=== PATIENT | male | born 1990 | race Caucasian/White ===

== ENCOUNTER 2020-03-16 11:28 | Emergency (ER) | payer MEDICAID ==
[2020-03-16 11:52] VITALS: BP 144/96; PULSE 67
--- NOTE | 2020-03-16 12:20 | EDM.PDOC ---
ED HPI GENERAL MEDICAL PROBLEM - General Chief Complaint: Flank Pain Stated Complaint: uti??? Time Seen by Provider: 03/16/20 12:05 Source of Information: Reports: Patient History Limitations: Reports: No Limitations - History of Present Illness INITIAL COMMENTS - FREE TEXT/NARRATIVE: 29-year-old male who developed right flank pain and dysuria fairly suddenly this morning. No chills. Denies nausea or vomiting or abdominal pain. He had an episode of right flank pain that lasted four hours 3 days ago then resolved. He is fairly uncomfortable. Onset: Sudden Duration: Hour(s): (4 hours ago) Location: Reports: Other (Right flank) Quality: Reports: Burning, Sharp Worsens with: Reports: Other (Urinating causes increased pain and discomfort) Associated Symptoms: Reports: No Other Symptoms Right Flank Pain Score (Numeric/FACES): 8 - Related Data Allergies Allergy/AdvReac Type Severity Reaction Status Date / Time No Known Allergies Allergy Verified 03/12/18 16:36 Past Medical History - Past Health History Medical/Surgical History: Denies Medical/Surgical History Genitourinary History: Reports: UTI, Recurrent Psychiatric History: Reports: ADHD, Anxiety, Bipolar, Depression, PTSD Dermatologic History: Reports: Other (See Below) Other Dermatologic History: skin cysts. Hives - Infectious Disease History Infectious Disease History: Reports: Chicken Pox, MRSA Social & Family History - Tobacco Use Tobacco Use Status *Q: Current Every Day Tobacco User Years of Tobacco use: 13 Packs/Tins Daily: 0.5 - Caffeine Use Caffeine Use: Reports: Coffee, Soda, Tea - Recreational Drug Use Recreational Drug Use: Yes Drug Use in Last 12 Months: Yes Recreational Drug Type: Reports: Marijuana/Hashish Recreational Drug Use Frequency: Rarely ED ROS GENERAL - Review of Systems Review Of Systems: See Below Constitutional: Denies: Fever, Chills HEENT: Reports: No Symptoms Respiratory: Reports: No Symptoms GI/Abdominal: Reports: No Symptoms : Reports: Dysuria, Frequency, Urgency Musculoskeletal: Reports: Back Pain (Right flank) Skin: Reports: No Symptoms Neurological: Reports: No Symptoms ED EXAM, RENAL/ - Physical Exam Exam: See Below Exam Limited By: No Limitations General Appearance: Alert, No Apparent Distress (Looks uncomfortable but not distressed) Head: Atraumatic Respiratory/Chest: No Respiratory Distress, Lungs Clear Cardiovascular: Regular Rate, Rhythm GI/Abdominal: Soft, Non-Tender Back Exam: CVA Tenderness (R) (A small amount of right CVA tenderness to percussion) Course - Vital Signs Last Recorded V/S: Last Vital Signs Temp 96.3 F L 03/16/20 12:06 Pulse 67 03/16/20 12:06 Resp 16 03/16/20 12:06 BP 144/96 H 03/16/20 12:06 Pulse Ox 100 03/16/20 12:06 - Orders/Labs/Meds Labs: Laboratory Tests 03/16/20 Range/Units 12:16 Urine Color Yellow (YELLOW) Urine Appearance Slightly cloudy A (CLEAR) Urine pH 8.0 (5.0-8.0) Ur Specific [place] 1.020 (1.008-1.030) Urine Protein 100 H (NEGATIVE) mg/dL Urine Glucose (UA) Negative (NEGATIVE) mg/dL Urine Ketones Negative (NEGATIVE) mg/dL Urine Occult Blood Moderate H (NEGATIVE) Urine Nitrite Negative (NEGATIVE) Urine Bilirubin Negative (NEGATIVE) Urine Urobilinogen 0.2 (0.2-1.0) EU/dL Ur Leukocyte Esterase Negative (NEGATIVE) Urine RBC 20-30 H (0-5) Urine WBC Not seen (0-5) Ur Epithelial Cells Not seen Amorphous Sediment Moderate Urine Bacteria Moderate Urine Mucus Not seen Meds: Medications Discontinued Medications Generic Name Dose Route Start Last Admin Trade Name Freq PRN Reason Stop Dose Admin Ketorolac Tromethamine 30 mg 03/16/20 12:39 03/16/20 12:59 Toradol IVPUSH 03/16/20 12:40 30 mg ONETIME ONE Administration Tamsulosin HCl 0.4 mg 03/16/20 13:17 03/16/20 13:23 Flomax PO 03/16/20 13:18 0.4 mg ONETIME ONE Administration - Re-Assessments/Exams Free Text/Narrative Re-Assessment/Exam: 03/16/20 12:36 UA was obtained, if hematuria without infection CT will be considered. 03/16/20 12:43 UA shows 20-30 RBCs but no other significant findings. An IV was started, patient will given 30 mg of IV Toradol and a CT abdomen pelvis without contrast ordered 03/16/20 13:39 CT confirmed mild right hydronephrosis with a small stone right UVJ junction, possibly already in the bladder. Patient was feeling much better. He given oral dose of Flomax, and discharged with 10 doses of Toradol to take every 6-8 hours for pain and he can return anytime if worsening. She also consider rechecking next week if still having symptoms. Departure - Departure Time of Disposition: 13:49 Disposition: Home, Self-Care 01 Clinical Impression: Right nephrolithiasis, Renal colic on right side - Discharge Information Instructions: Kidney Stones, [id number] Referrals: PCP,None [Primary Care Provider] - Forms: ED Department Discharge Care Plan Goals: Continue taking 1 pain pill every 6 hours along with Tylenol or acetaminophen if needed until pain resolves. Return to the emergency room if pain is uncontrolled or you start vomiting or develop a fever. Otherwise consider rechecking next week if not completely back to normal. Sepsis Event Note (ED) - Evaluation Sepsis Screening Result: No Definite Risk - Focused Exam Vital Signs: Vital Signs Temp Pulse Resp BP Pulse Ox 03/16/20 12:06 96.3 F L 67 16 144/96 H 100 03/16/20 11:51 96.3 F L 67 16 144/96 H 100
[2020-03-16] MEDS ORDERED: Ketorolac 30 MG/ML SDV IVPUSH ONE (12:39)
[2020-03-16] MEDS ORDERED: Tamsulosin 0.4 MG Cap.ER PO ONE (13:17)
--- NOTE | 2020-03-16 13:34 | CT ---
Abdomen Pelvis wo Cont CLINICAL HISTORY: Hematuria and right flank pain COMPARISON: None. TECHNIQUE: Axial tomographic images are obtained from the dome of the diaphragm to the pubic symphysis without IV contrast enhancement. No oral contrast was used. The dosage reduction and iterative reconstruction techniques employed. FINDINGS: The lung bases are clear. The liver is normal size and density. The gallbladder has a normal contour. The spleen has a normal size and shape. The pancreas shows no mass or inflammatory change. The adrenal glands appear normal bilaterally. The right kidney is mildly hydronephrotic. There is mild dilatation of the right ureter along its length. There is a 6 mm stone in the bladder contiguous to the right UVJ. This still may be within the distal ureteral orifice. There is a punctate stone in the upper pole of the right kidney. Left kidney shows no stone or hydronephrosis IMPRESSION: Mild right-sided hydronephrosis and hydroureter with a small urinary stone in the bladder contiguous to the UVJ. This could still be within the orifice.
== END 2020-03-16 13:50 | disposition home or self-care (01) ==
LOC: JP.ED 11:28
DX: N13.2 Hydronephrosis with renal and ureteral calculous obstruction (principal); F17.210 Nicotine dependence, cigarettes, uncomplicated
CPT/HCPCS: 74176; 81001; 96374; 99284; A9270; J1885

== ENCOUNTER 2020-10-24 22:50 | Emergency (ER) | payer MEDICAID ==
[2020-10-25] MEDS ORDERED: Sodium Chloride 0.9% 2,000 ML IV ONE (01:01)
[2020-10-25] MEDS ORDERED: Famotidine 20 MG/2 ML SDV IVPUSH ONE (01:02)
[2020-10-25] MEDS ORDERED: Ondansetron 4 MG/2 ML SDV IVPUSH PRN (01:02)
[2020-10-25] MEDS ORDERED: Sodium Chloride 0.9% 10 ML Syringe FLUSH PRN (01:02)
--- NOTE | 2020-10-25 01:08 | EDM.PDOC ---
ED HPI GENERAL MEDICAL PROBLEM - General Chief Complaint: Back Pain or Injury Stated Complaint: KIDNEY PAIN AND SEVERE BACK PAIN Time Seen by Provider: 10/25/20 01:01 Source of Information: Reports: Patient History Limitations: Reports: No Limitations - History of Present Illness INITIAL COMMENTS - FREE TEXT/NARRATIVE: Patient states that he woke up last night nausea vomiting fever, times continued throughout today he is had difficulty keeping any food or fluids down as well as he reports decreased urination. He states that he has body aches all over that his right and left side laterally in the flank as well as back as well as muscle cramps in his legs arms shoulders patient also reports being dizzy and lightheaded with any movement especially upright positioning PMH--anxiety, depression Meds--seroquel, buspar NKDA Tob--2 cig/ day EtOH/Drug--denies Onset Date: 10/24/20 right sided lower back pain Pain Score (Numeric/FACES): 8 - Related Data Allergies Allergy/AdvReac Type Severity Reaction Status Date / Time No Known Allergies Allergy Verified 03/12/18 16:36 Past Medical History - Past Health History Medical/Surgical History: Denies Medical/Surgical History Genitourinary History: Reports: UTI, Recurrent Psychiatric History: Reports: ADHD, Anxiety, Bipolar, Depression, PTSD Dermatologic History: Reports: Other (See Below) Other Dermatologic History: skin cysts. Hives - Infectious Disease History Infectious Disease History: Reports: Chicken Pox, MRSA Social & Family History - Tobacco Use Tobacco Use Comment: Pt states, "I only smoke like 2 smokes a day and thats only if im stressed" - Caffeine Use Caffeine Use: Reports: None - Recreational Drug Use Recreational Drug Use: Yes Drug Use in Last 12 Months: Yes Recreational Drug Type: Reports: Methamphetamine ED ROS GENERAL - Review of Systems Review Of Systems: Comprehensive ROS is negative, except as noted in HPI. Constitutional: Reports: Fever, Fatigue, Other (Body aches) HEENT: Reports: No Symptoms Respiratory: Reports: No Symptoms Cardiovascular: Reports: Lightheadedness, Palpitations Endocrine: Reports: No Symptoms GI/Abdominal: Reports: Abdominal Pain, Decreased Appetite, Nausea, Vomiting. Denies: Difficulty Swallowing : Reports: Other (Decreased urination) Musculoskeletal: Reports: Other (He aches) Skin: Reports: No Symptoms Neurological: Reports: Dizziness Psychiatric: Reports: No Symptoms Hematologic/Lymphatic: Reports: No Symptoms Immunologic: Reports: No Symptoms ED EXAM, GENERAL - Physical Exam Exam: See Below Exam Limited By: No Limitations General Appearance: Alert, WD/WN, Moderate Distress (There is to not feel well) Eye Exam: Bilateral Eye: EOMI, Normal Inspection, PERRL Ears: Normal External Exam, Hearing Grossly Normal Nose: Normal Inspection Throat/Mouth: Normal Inspection, Normal Oropharynx, Normal Voice, No Airway Compromise Head: Atraumatic, Normocephalic Neck: Normal Inspection, Supple, Non-Tender, Full Range of Motion. No: Lymphadenopathy (R), Lymphadenopathy (L) Respiratory/Chest: No Respiratory Distress, Lungs Clear, Normal Breath Sounds Cardiovascular: Normal Peripheral Pulses, No Edema, Tachycardia Peripheral Pulses: 2+: Radial (L), Radial (R) GI/Abdominal: Normal Bowel Sounds, Soft, No Distention, Tender ([place]). No: Guarding, Rigid (Male) Exam: Deferred Rectal (Males) Exam: Deferred Back Exam: CVA Tenderness (R), CVA Tenderness (L) Extremities: Normal Inspection, Normal Range of Motion, No Pedal Edema, Normal Capillary Refill Neurological: Alert, Oriented, No Motor/Sensory Deficits Psychiatric: Normal Affect, Normal Mood Skin Exam: Warm, Dry, Intact, Normal Color Course - Vital Signs Text/Narrative:: Lab abnormalities noted as follows White blood cell13.5 [id number] neutrophils 80% bands 5% on chemistry panel [id number] anion gap 15.2 bun/creatinine 26/2.1 estimated GFR close 38 magnesium 1.2 ALT 80. UA returns noted for hyaline casts consistent with dehydration was methamphetamine in urine drug screen. in room to d/w patient lab findings and recommendations in further care to include admission/transfer to another facility (no beds available at this hospital). he initially indicated he was interested in going to [place] but then he said he would have his girlfriend take him tomorrow if he still felt bad. attempted several times to explain his medical situation with dehydration/acute renal failure but he made the final decision to sign out AMA Last Recorded V/S: Last Vital Signs Temp 98.2 F 10/25/20 02:03 Pulse 135 H 10/25/20 02:03 Resp 24 H 10/25/20 02:03 BP 109/37 L 10/25/20 02:03 Pulse Ox 100 10/25/20 02:03 - Orders/Labs/Meds Orders: Active Orders 24 hr Category Date Time Status DRUG SCREEN, URINE [URCHEM] Stat Lab 10/25/20 02:03 Ordered UA W/MICROSCOPIC [URIN] Stat Lab 10/25/20 02:03 Received Saline Lock Insert [OM.PC] Routine Oth 10/25/20 01:02 Ordered Labs: Laboratory Tests 10/25/20 10/25/20 Range/Units 01:06 01:06 WBC 13.5 H (4.5-11.0) K/uL RBC 5.01 (4.30-5.90) M/uL Hgb 15.0 (12.0-15.0) g/dL Hct 44.6 (40.0-54.0) % MCV 89 (80-98) fL MCH 30 (27-31) pg MCHC 34 (32-36) % Plt Count 98 L (150-400) K/uL Add Manual Diff Yes Neutrophils % (Manual) 80 H (36-66) % Band Neutrophils % 5 (5-11) % Lymphocytes % (Manual) 8 L (24-44) % Monocytes % (Manual) 6 (2-6) % Eosinophils % (Manual) 1 L (2-4) % Sodium 136 L (140-148) mmol/L Potassium 4.2 (3.6-5.2) mmol/L Chloride 97 L (100-108) mmol/L Carbon Dioxide 28 (21-32) mmol/L Anion Gap 15.2 H (5.0-14.0) mmol/L BUN 26 H (7-18) mg/dL Creatinine 2.1 H (0.8-1.3) mg/dL Est Cr Clr Drug Dosing 57.48 mL/min Estimated GFR (MDRD) 38 L (>60) Glucose 94 (74-106) mg/dL Calcium 8.8 (8.5-10.1) mg/dL Magnesium 1.2 L (1.8-2.4) mg/dL Total Bilirubin 1.0 (0.2-1.0) mg/dL AST 35 (15-37) U/L ALT 80 H (12-78) U/L Alkaline Phosphatase 91 (46-116) U/L Total Protein 7.2 (6.4-8.2) g/dL Albumin 4.0 (3.4-5.0) g/dL Globulin 3.2 (2.3-3.5) g/dL Albumin/Globulin Ratio 1.3 (1.2-2.2) Amylase 69 (25-115) U/L Lipase 78 (73-393) U/L Meds: Medications Discontinued Medications Generic Name Dose Route Start Last Admin Trade Name Freq PRN Reason Stop Dose Admin Famotidine 20 mg 10/25/20 01:02 10/25/20 01:22 Famotidine 20 Mg/2 Ml Sdv IVPUSH 10/25/20 01:03 20 mg ONETIME ONE Administration Sodium Chloride 2,000 mls @ 999 mls/hr 10/25/20 01:01 10/25/20 01:09 Normal Saline IV 10/25/20 03:01 999 mls/hr .BOLUS ONE Administration Ondansetron HCl 4 mg 10/25/20 01:02 10/25/20 01:19 Ondansetron 4 Mg/2 Ml Sdv IVPUSH 4 mg Q4H PRN Administration Nausea/Vomiting Sodium Chloride 10 ml 10/25/20 01:02 10/25/20 01:20 Sodium Chloride 0.9% 10 Ml Syringe FLUSH 10 ml ASDIRECTED PRN Administration Keep Vein Open Departure - Departure Time of Disposition: 03:10 Disposition: Against Medical Advice 07 Clinical Impression: Dehydration with hyponatremia, Methamphetamine abuse, Acute renal failure, Hypomagnesemia, Thrombocytopenia, Left against medical advice - Discharge Information *PRESCRIPTION DRUG MONITORING PROGRAM REVIEWED*: Not Applicable *COPY OF PRESCRIPTION DRUG MONITORING REPORT IN PATIENT SHERMAN: Not Applicable Referrals: PCP,None [Primary Care Provider] - Forms: ED Department Discharge Sepsis Event Note (ED) - Evaluation Sepsis Screening Result: No Definite Risk - Focused Exam Vital Signs: Vital Signs Temp Pulse Resp BP Pulse Ox 10/25/20 02:03 98.2 F 135 H 24 H 109/37 L 100 10/25/20 00:50 97.5 F 154 H 20 101/35 L 100 10/25/20 00:35 97.5 F 154 H 20 101/35 L 100 - My Orders Last 24 Hours: My Active Orders 10/25/20 01:02 Saline Lock Insert [OM.PC] Routine 10/25/20 02:03 DRUG SCREEN, URINE [URCHEM] Stat UA W/MICROSCOPIC [URIN] Stat - Assessment/Plan Last 24 Hours: My Active Orders 10/25/20 01:02 Saline Lock Insert [OM.PC] Routine 10/25/20 02:03 DRUG SCREEN, URINE [URCHEM] Stat UA W/MICROSCOPIC [URIN] Stat
[2020-10-25 02:05] VITALS: BP 109/37; PULSE 135
== END 2020-10-25 03:10 | disposition left against medical advice (07) ==
LOC: JP.ED 22:50
DX: E87.1 Hypo-osmolality and hyponatremia (principal); E86.0 Dehydration; F15.10 Other stimulant abuse, uncomplicated; N17.9 Acute kidney failure, unspecified; E83.42 Hypomagnesemia; D69.6 Thrombocytopenia, unspecified; Z72.0 Tobacco use
CPT/HCPCS: 36415; 80053; 80305; 81001; 82150; 83690; 83735; 85025; 96374; 96375; 99284; J2405; J3490; J7030

== ENCOUNTER 2021-02-08 10:45 | Emergency (ER) | payer MEDICAID ==
[2021-02-08 11:21] VITALS: BP 125/84; PULSE 113
--- NOTE | 2021-02-08 11:48 | EDM.PDOC ---
ED HPI GENERAL MEDICAL PROBLEM - General Chief Complaint: General Stated Complaint: THROWING UP,URINE IS DARK ORANGE,HOT FLASHES, Time Seen by Provider: 02/08/21 11:30 Source of Information: Reports: Patient, RN. Denies: Old Records History Limitations: Reports: Other (no old records) - History of Present Illness INITIAL COMMENTS - FREE TEXT/NARRATIVE: 30 yo male here with sores on his lip and recent, improving swelling around his fingernails bilat. He has not had a fever. No dizziness with standing. He has no primary care provider and has not been to the clinic. Onset: Gradual Duration: Day(s): (~4), Improving Location: Reports: Face, Upper Extremity, Left, Upper Extremity, Right Quality: Reports: Dull Severity: Mild Improves with: Reports: Other (time) Worsens with: Reports: Other (unsure) Context: Reports: Other (See HPI) Associated Symptoms: Reports: No Other Symptoms. Denies: Diaphoresis, Fever/Chills, Nausea/Vomiting Treatments STOCK SHAPER: Reports: Other (see below) (none) - Related Data Allergies Allergy/AdvReac Type Severity Reaction Status Date / Time No Known Allergies Allergy Verified 02/08/21 11:21 Home Meds: Home Meds . [Unable to Verify Home Med List] 02/08/21 [History] Past Medical History - Past Health History Medical/Surgical History: Denies Medical/Surgical History Genitourinary History: Reports: UTI, Recurrent Musculoskeletal History: Reports: Fracture Psychiatric History: Reports: ADHD, Addiction, Anxiety, Bipolar, Depression, PTSD, Other (See Below) Other Psychiatric History: Meth Dermatologic History: Reports: Other (See Below) Other Dermatologic History: skin cysts. Hives - Infectious Disease History Infectious Disease History: Reports: Chicken Pox, MRSA - Past Surgical History Musculoskeletal Surgical History: Reports: Other (See Below) Other Musculoskeletal Surgeries/Procedures:: surgery of right hand due to fx Social & Family History - Tobacco Use Tobacco Use Status *Q: Heavy Tobacco User Years of Tobacco use: 10 Packs/Tins Daily: 0.5 - Caffeine Use Caffeine Use: Reports: None - Recreational Drug Use Recreational Drug Type: Reports: Marijuana/Hashish, Methamphetamine ED ROS GENERAL - Review of Systems Review Of Systems: See Below Constitutional: Reports: No Symptoms HEENT: Reports: Other (healing sores on lips) Respiratory: Reports: No Symptoms Cardiovascular: Reports: No Symptoms GI/Abdominal: Reports: No Symptoms Musculoskeletal: Reports: No Symptoms Skin: Reports: Erythema (and swelling around fingernails, improving) Neurological: Reports: No Symptoms ED EXAM, GENERAL - Physical Exam Exam: See Below Exam Limited By: No Limitations General Appearance: Alert, WD/WN, No Apparent Distress Eye Exam: Bilateral Eye: Normal Inspection Ears: Normal External Exam, Normal Canal, Hearing Grossly Normal, Normal TMs Ear Exam: Bilateral Ear: Auricle Normal, Canal Normal, TM normal Nose: Normal Inspection, No Blood Throat/Mouth: Normal Inspection, Normal Oropharynx, Normal Voice, No Airway Compromise, Other (oral mucosa slightly dry). No: Normal Lips (has scabs on lips like healing cold sores) Head: Atraumatic, Normocephalic Neck: Normal Inspection Respiratory/Chest: No Respiratory Distress, Lungs Clear, Normal Breath Sounds, No Accessory Muscle Use Cardiovascular: Regular Rate, Rhythm, No Edema, Tachycardia GI/Abdominal: Soft, Non-Tender, No Distention. No: Distended Back Exam: Normal Inspection. No: CVA Tenderness (R), CVA Tenderness (L) Extremities: Normal Inspection Neurological: Alert, Oriented, CN II-XII Intact, Normal Cognition, No Motor/Sensory Deficits Psychiatric: Normal Affect, Normal Mood Skin Exam: Warm, Dry, Intact, Normal Color, No Rash, Other (had nearly resolved what looks like resolving paronychia along the margins of several fingernails. ) Course - Vital Signs Last Recorded V/S: Last Vital Signs Temp 35.9 C L 02/08/21 11:22 Pulse 113 H 02/08/21 11:22 Resp 16 02/08/21 11:22 BP 125/84 02/08/21 11:22 Pulse Ox 100 02/08/21 11:22 - Orders/Labs/Meds Orders: Active Orders 24 hr Category Date Time Status CBC W/O DIFF,HEMOGRAM [HEME] Stat Lab 02/08/21 11:42 Ordered DRUG SCREEN, URINE [URCHEM] Stat Lab 02/08/21 11:42 Ordered UA W/MICROSCOPIC [URIN] Stat Lab 02/08/21 11:42 Ordered Departure - Departure Time of Disposition: 11:50 Disposition: Home, Self-Care 01 Condition: Good Clinical Impression: Cold sore, Mild dehydration - Discharge Information *PRESCRIPTION DRUG MONITORING PROGRAM REVIEWED*: Not Applicable *COPY OF PRESCRIPTION DRUG MONITORING REPORT IN PATIENT SHERMAN: Not Applicable Instructions: Cold Sore, [id number], Dehydration, Adult, [id number] Referrals: PCP,None [Primary Care Provider] - Additional Instructions: Drink enough fluids so that your urine is very light in color. Apply topical Carmex to your lips as directed on the package. Apply moisturizers to your hands regularly. Get established with a local doctor for non-emergent care. Call back this afternoon for your tests results from today. Sepsis Event Note (ED) - Evaluation Sepsis Screening Result: No Definite Risk - Focused Exam Vital Signs: Vital Signs Temp Pulse Resp BP Pulse Ox 02/08/21 11:22 35.9 C L 113 H 16 125/84 100 02/08/21 11:20 35.9 C L 113 H 16 125/84 100 - My Orders Last 24 Hours: My Active Orders 02/08/21 11:42 CBC W/O DIFF,HEMOGRAM [HEME] Stat DRUG SCREEN, URINE [URCHEM] Stat UA W/MICROSCOPIC [URIN] Stat - Assessment/Plan Last 24 Hours: My Active Orders 02/08/21 11:42 CBC W/O DIFF,HEMOGRAM [HEME] Stat DRUG SCREEN, URINE [URCHEM] Stat UA W/MICROSCOPIC [URIN] Stat
== END 2021-02-08 11:54 | disposition home or self-care (01) ==
LOC: JP.ED 10:45
DX: K13.0 Diseases of lips (principal); E86.0 Dehydration; Z72.0 Tobacco use
CPT/HCPCS: 36415; 85027; 99283